=== PATIENT | male | born 1990 | race Caucasian/White ===

== ENCOUNTER 2016-08-21 10:54 | Emergency (ER) | payer OTHER ==
--- NOTE | 2016-08-21 11:29 | EDDOCDS ---
Nurse's Notes [facility] Name: Diogenes Li Age: 26 yrs Sex: Male : 1990 Arrival Date: 08/21/2016 Time: 10:54 Bed Triage 1 Private MD: INAll FISHER Diagnosis: Pain in right hand Presentation: 08/21 10:59 Presenting complaint: Patient states: hx of broken hand x 5 - re injured few month ago pml and was not taken care of - states it is broken - saw ortho was told he has nerve damage and awaiting testing. reports pain is the same or increased the entire time - no relief with tylenol and motrin. Adult Sepsis Screening: The patient does not have new or worsening altered mentation. Patient's respiratory rate is less than 22. Systolic blood pressure is greater than 100. Patient has a qSOFA score of 0- Negative Sepsis Screen. Suicide/Homicide risk assessment- the patient denies having any suicidal and/or homicidal ideations and does not present with any other emotional, behavioral or mental health complaints. Status: The patient is an active duty career services coordinator. Transition of care: patient was not received from another setting of care. 10:59 Acuity: GREG Level 4 pml 10:59 Method Of Arrival: Walkin/Carried/Asstd pml Triage Assessment: 11:01 General: Appears in no apparent distress, Behavior is appropriate for age, cooperative. pml Pain: Location: right hand Pain currently is 7 out of 10 on a pain scale. HIV screening NA for this visit Offered previously. Musculoskeletal: Circulation, motion, and sensation intact. Historical: - Allergies: no known allergies; - Home Meds: 1. none - PMHx: none; - PSHx: right hand surgery; - Social history: Smoking status: Patient uses tobacco products, light tobacco smoker. No barriers to communication noted, The patient speaks fluent Palestinian, Speaks appropriately for age. - Family history: Not pertinent. - : The pt / caregiver states he / she is not on anticoagulants. Home medication list is obtained from the patient. - Exposure Risk Screening:: None identified. Screenin:27 Screening information is obtained from the patient. Fall risk: No risks identified. js13 Assistance ADL's: requires no assistance with activities of daily living. Abuse/DV Screen: The patient / caregiver reports he/she is: not in a situation that causes fear, pain or injury. Nutritional screening: No deficits noted. Advance Directives: There is no active DNR order. home support is adequate. Assessment: 11:27 Musculoskeletal: Circulation, motion, and sensation intact Range of motion limited in js13 right hand. Vital Signs: 10:57 BP 149 / 88; Pulse 100; Resp 16; Temp 98.7; Pulse Ox 100% on R/A; Weight 70.31 kg (R); jrd Height 69 in. (175.26 cm) (R); Pain 7/10; 10:57 Body Mass Index 22.89 (70.31 kg, 175.26 cm) jrd Vitals: 10:57 Log In Time: August 21, 2016 at 10:52. [facility] ED Course: 10:56 Patient visited by Chaz Paz PCA. jrd 10:56 Patient moved to Waiting jrd 10:57 [facility] is Private Physician. jrd 10:59 Patient visited by Chaz Paz PCA. jrd 10:59 Patient moved to Pre RCE jrd 11:01 Patient visited by Mary Huff RN. pml 11:01 Triage Initiated pml 11:01 Patient moved to Triage 1 pml 11:03 [facility] Contreras F[facility] ke 11:03 Patient visited by Frederic Contreras FNP. ke 11:03 Patient visited by Frederic Contreras FNP. ke 11:17 [facility] Payment Agreement was scanned into [employer] and attached to record. mm15 11:21 [facility] is Referral Physician. ke 11:22 [facility] ke 11:27 The patient / caregiver is instructed regarding the plan of care and ED course. js13 11:27 No IV's were initiated during this patient's visit. No procedures done that require js13 assistance. Order Results: There are currently no results for this order. Outcome: 11:22 Discharge ordered by Provider. ke 11:27 Discharge Assessment: Patient awake, alert and oriented x 3. No cognitive and/or js13 functional deficits noted. Patient verbalized understanding of disposition instructions. patient administered narcotics - no. The following High Risk Discharge criteria are identified: None. Discharged to home ambulatory. Condition: stable. Discharge instructions given to patient, Instructed on discharge instructions, follow up and referral plans. medication usage, Demonstrated understanding of instructions, medications, Pt was receptive of discharge instructions/ teaching. Prescriptions given X 1. No special radiology studies were completed. Property :Personal belongings accompany Pt. 11:28 Patient left the ED. js13 Signatures: Frederic Contreras, Mary WilderRN RN Eda Henriquez RN RN js13 Zakia Boss mm15 Chaz Paz PCA QUALITATIVE FIELD PROJECT MANAGER jrhesham MTDD
--- NOTE | 2016-08-21 11:30 | EDDOCDS ---
Physician Documentation [facility] Name: Diogenes Li Age: 26 yrs Sex: Male : 1990 Arrival Date: 08/21/2016 Time: 10:54 Bed Triage 1 Private MD: [facility] [place] Disposition: 08/21/16 11:22 Discharged to Home/Self Care. Impression: Pain in right hand. - Condition is Stable. - Discharge Instructions: Pain Without a Known Cause. - Prescriptions for [place] 5- 325 mg Oral Tablet - take 1 tablet by ORAL route every 6 hours As needed MDD: 4 tabs; 20 tablet. - Medication Reconciliation, Local Pharmacy Hours form. - Follow up: [facility]; When: As soon as possible; Reason: Continuance of care. Follow up: Orthopaedics, [facility]; When: As soon as possible; Reason: Continuance of care. - Problem is an ongoing problem. - Symptoms are unchanged. Historical: - Allergies: no known allergies; - Home Meds: 1. none - PMHx: none; - PSHx: right hand surgery; - Social history: Smoking status: Patient uses tobacco products, light tobacco smoker. No barriers to communication noted, The patient speaks fluent [place], Speaks appropriately for age. - Family history: Not pertinent. - : The pt / caregiver states he / she is not on anticoagulants. Home medication list is obtained from the patient. - Exposure Risk Screening:: None identified. Vital Signs: 08/21 10:57 BP 149 / 88; Pulse 100; Resp 16; Temp 98.7; Pulse Ox 100% on R/A; Weight 70.31 kg / jrd 155.01 lbs (R); Height 69 in. (175.26 cm) (R); Pain 7/10; 10:57 Body Mass Index 22.89 (70.31 kg, 175.26 cm) jrd MDM: 11:15 Financial registration complete. mm15 11:17 [facility] Payment Agreement was scanned into [employer] and attached to record. mm15 Signatures: Frederic Contreras FNP FNP ke Quay, PaulinaRN Eda Kwan RN RN js13 Zakia Boss mm15 The chart was reviewed and I authenticate all verbal orders and agree with the evaluation and treatment provided.Attachments: 11:17 [facility] Payment Agreement mm15 MTDD
--- NOTE | 2016-08-23 12:29 | EDDOCDS ---
Nurse's Notes [facility] Name: Diogenes Li Age: 26 yrs Sex: Male : 1990 Arrival Date: 08/21/2016 Time: 10:54 Bed Triage 1 Private MD: WIAll FISHER Diagnosis: Pain in right hand Presentation: 08/21 10:59 Presenting complaint: Patient states: hx of broken hand x 5 - re injured few month ago pml and was not taken care of - states it is broken - saw ortho was told he has nerve damage and awaiting testing. reports pain is the same or increased the entire time - no relief with tylenol and motrin. Adult Sepsis Screening: The patient does not have new or worsening altered mentation. Patient's respiratory rate is less than 22. Systolic blood pressure is greater than 100. Patient has a qSOFA score of 0- Negative Sepsis Screen. Suicide/Homicide risk assessment- the patient denies having any suicidal and/or homicidal ideations and does not present with any other emotional, behavioral or mental health complaints. Status: The patient is an active duty automotive services manager. Transition of care: patient was not received from another setting of care. 10:59 Acuity: GREG Level 4 pml 10:59 Method Of Arrival: Walkin/Carried/Asstd pml Triage Assessment: 11:01 General: Appears in no apparent distress, Behavior is appropriate for age, cooperative. pml Pain: Location: right hand Pain currently is 7 out of 10 on a pain scale. HIV screening NA for this visit Offered previously. Musculoskeletal: Circulation, motion, and sensation intact. Historical: - Allergies: no known allergies; - Home Meds: 1. none - PMHx: none; - PSHx: right hand surgery; - Social history: Smoking status: Patient uses tobacco products, light tobacco smoker. No barriers to communication noted, The patient speaks fluent Sierra Leonean, Speaks appropriately for age. - Family history: Not pertinent. - : The pt / caregiver states he / she is not on anticoagulants. Home medication list is obtained from the patient. - Exposure Risk Screening:: None identified. Screenin:27 Screening information is obtained from the patient. Fall risk: No risks identified. js13 Assistance ADL's: requires no assistance with activities of daily living. Abuse/DV Screen: The patient / caregiver reports he/she is: not in a situation that causes fear, pain or injury. Nutritional screening: No deficits noted. Advance Directives: There is no active DNR order. home support is adequate. Assessment: 11:27 Musculoskeletal: Circulation, motion, and sensation intact Range of motion limited in js13 right hand. Vital Signs: 10:57 BP 149 / 88; Pulse 100; Resp 16; Temp 98.7; Pulse Ox 100% on R/A; Weight 70.31 kg (R); jrd Height 69 in. (175.26 cm) (R); Pain 7/10; 10:57 Body Mass Index 22.89 (70.31 kg, 175.26 cm) d Vitals: 10:57 Log In Time: August 21, 2016 at 10:52. [facility] ED Course: 10:56 Patient visited by Chaz Paz PCA. jrd 10:56 Patient moved to Waiting jrd 10:57 [facility] is Private Physician. jrd 10:59 Patient visited by Chaz Paz PCA. jrd 10:59 Patient moved to Pre RCE jrd 11:01 Patient visited by Mary Huff RN. pml 11:01 Triage Initiated pml 11:01 Patient moved to Triage 1 pml 11:03 [facility] ke 11:03 Patient visited by Frederic Contreras FNP. ke 11:03 Patient visited by Frederic Contreras FNP. ke 11:17 [facility] Payment Agreement was scanned into [employer] and attached to record. mm15 11:21 [facility] is Referral Physician. ke 11:22 [facility] ke 11:27 The patient / caregiver is instructed regarding the plan of care and ED course. js13 11:27 No IV's were initiated during this patient's visit. No procedures done that require js13 assistance. 14:42 T-Sheet-- Draft Copy was scanned into [employer] and attached to record. gb Order Results: There are currently no results for this order. Outcome: 11:22 Discharge ordered by Provider. ke 11:27 Discharge Assessment: Patient awake, alert and oriented x 3. No cognitive and/or js13 functional deficits noted. Patient verbalized understanding of disposition instructions. patient administered narcotics - no. The following High Risk Discharge criteria are identified: None. Discharged to home ambulatory. Condition: stable. Discharge instructions given to patient, Instructed on discharge instructions, follow up and referral plans. medication usage, Demonstrated understanding of instructions, medications, Pt was receptive of discharge instructions/ teaching. Prescriptions given X 1. No special radiology studies were completed. Property :Personal belongings accompany Pt. 11:28 Patient left the ED. js13 Signatures: Jenise Menendez, Reg Reg gb Frederic Contreras, AIX SYSTEM ADMINISTRATOR AIX SYSTEM ADMINISTRATOR Mary AlexisRN RN Eda Henriquez RN RN js13 Zakia Boss mm15 Chaz Paz, CHERRIE TOBACCO DRUMMER jrd Chart Complete MTDD
--- NOTE | 2016-08-23 12:29 | EDDOCDS ---
Physician Documentation [facility] Name: Diogenes Li Age: 26 yrs Sex: Male : 1990 Arrival Date: 08/21/2016 Time: 10:54 Bed Triage 1 Private MD: [facility] [place] Disposition: 08/21/16 11:22 Discharged to Home/Self Care. Impression: Pain in right hand. - Condition is Stable. - Discharge Instructions: Pain Without a Known Cause. - Prescriptions for [place] 5- 325 mg Oral Tablet - take 1 tablet by ORAL route every 6 hours As needed MDD: 4 tabs; 20 tablet. - Medication Reconciliation, Local Pharmacy Hours form. - Follow up: [facility]; When: As soon as possible; Reason: Continuance of care. Follow up: Orthopaedics, [facility]; When: As soon as possible; Reason: Continuance of care. - Problem is an ongoing problem. - Symptoms are unchanged. Historical: - Allergies: no known allergies; - Home Meds: 1. none - PMHx: none; - PSHx: right hand surgery; - Social history: Smoking status: Patient uses tobacco products, light tobacco smoker. No barriers to communication noted, The patient speaks fluent Namibian, Speaks appropriately for age. - Family history: Not pertinent. - : The pt / caregiver states he / she is not on anticoagulants. Home medication list is obtained from the patient. - Exposure Risk Screening:: None identified. Vital Signs: 08/21 10:57 BP 149 / 88; Pulse 100; Resp 16; Temp 98.7; Pulse Ox 100% on R/A; Weight 70.31 kg / jrd 155.01 lbs (R); Height 69 in. (175.26 cm) (R); Pain 7/10; 10:57 Body Mass Index 22.89 (70.31 kg, 175.26 cm) jrd MDM: 11:15 Financial registration complete. mm15 11:17 [facility] Payment Agreement was scanned into [employer] and attached to record. mm15 14:42 T-Sheet-- Draft Copy was scanned into [employer] and attached to record. gb Signatures: Jenise Menendez, Reg Reg Frederic Garcia, HEALTH OUTREACH WORKER Mary Ayoub RN RN pml Sullivan, Jennifer, RN RN js13 Zakia Boss mm15 The chart was reviewed and I authenticate all verbal orders and agree with the evaluation and treatment provided.Attachments: 11:17 [facility] Payment Agreement mm15 14:42 T-Sheet-- Draft Copy gb Chart Complete MTDD
--- NOTE | 2016-08-23 12:29 | EDDOCDS ---
Physician Documentation [facility] Name: Diogenes Li Age: 26 yrs Sex: Male : 1990 Arrival Date: 08/21/2016 Time: 10:54 Bed Triage 1 Private MD: [facility] [place] Disposition: 08/21/16 11:22 Discharged to Home/Self Care. Impression: Pain in right hand. - Condition is Stable. - Discharge Instructions: Pain Without a Known Cause. - Prescriptions for [place] 5- 325 mg Oral Tablet - take 1 tablet by ORAL route every 6 hours As needed MDD: 4 tabs; 20 tablet. - Medication Reconciliation, Local Pharmacy Hours form. - Follow up: [facility]; When: As soon as possible; Reason: Continuance of care. Follow up: Orthopaedics, [facility]; When: As soon as possible; Reason: Continuance of care. - Problem is an ongoing problem. - Symptoms are unchanged. Historical: - Allergies: no known allergies; - Home Meds: 1. none - PMHx: none; - PSHx: right hand surgery; - Social history: Smoking status: Patient uses tobacco products, light tobacco smoker. No barriers to communication noted, The patient speaks fluent Estonian, Speaks appropriately for age. - Family history: Not pertinent. - : The pt / caregiver states he / she is not on anticoagulants. Home medication list is obtained from the patient. - Exposure Risk Screening:: None identified. Vital Signs: 08/21 10:57 BP 149 / 88; Pulse 100; Resp 16; Temp 98.7; Pulse Ox 100% on R/A; Weight 70.31 kg / jrd 155.01 lbs (R); Height 69 in. (175.26 cm) (R); Pain 7/10; 10:57 Body Mass Index 22.89 (70.31 kg, 175.26 cm) jrd MDM: 11:15 Financial registration complete. mm15 11:17 [facility] Payment Agreement was scanned into [employer] and attached to record. mm15 14:42 T-Sheet-- Draft Copy was scanned into [employer] and attached to record. gb Signatures: Jenise Menendez, Reg Reg Frederic Garcia, PACK MULE WORKER Mary Ayoub RN RN pml Sullivan, Jennifer, RN RN js13 Zakia Boss mm15 The chart was reviewed and I authenticate all verbal orders and agree with the evaluation and treatment provided.Attachments: 11:17 [facility] Payment Agreement mm15 14:42 T-Sheet-- Draft Copy gb Chart Complete MTDD
== END 2016-08-21 11:29 | disposition home or self-care (01) ==
LOC: M ED 10:54
DX: M25.541 Pain in joints of right hand (principal); G62.9 Polyneuropathy, unspecified; Z72.0 Tobacco use

== ENCOUNTER → 2016-08-21 | Outpatient (REF) | payer OTHER ==
[2016-08-21 14:06] LABS: BASO % 0.7 % (0.0-1.0); EOS # 0.1 K/mm3 (0.0-0.50); LARGE UNSTAINED CELL % 1.1 % (0.0-4.0); MEAN CORPUSCULAR HEMOGLOBIN 24.7 pg (27.0-33.0); MEAN CORPUSCULAR HGB CONC 31.8 g/dl (32.0-36.5); MEAN CORPUSCULAR VOLUME 77.8 fl (80.0-96.0); MONO # 0.3 K/mm3 (0.0-0.8); MONO % 8.1 % (0.0-5.0); NEUTROPHILS # 1.9 K/mm3 (1.8-7.7); NEUTROPHILS % 57.1 % (36.0-66.0); PLATELET COUNT, AUTOMATED 191 k/mm3 (150-450); RED CELL DISTRIBUTION WIDTH 15.3 % (11.5-14.5); WHITE BLOOD COUNT 3.3 K/mm3 (4.0-10.0)
[2016-08-21 14:28] LABS: FOLATE 6.6 NG/ML (>5.4); VITAMIN B12 LEVEL 463 PG/ML (247-911)
[2016-08-21 14:30] LABS: ALBUMIN 3.8 GM/DL (3.2-5.2); ALBUMIN/GLOBULIN RATIO 1.15 (1.00-1.93); ALKALINE PHOSPHATASE 80 U/L (45-117); ALT/SGPT 22 U/L (12-78); ANION GAP 8 MEQ/L (8-16); AST/SGOT 15 U/L (15-37); BILIRUBIN,TOTAL 0.3 MG/DL (0.2-1.0); BLOOD UREA NITROGEN 10 MG/DL (7-18); CARBON DIOXIDE LEVEL 28 MEQ/L (21-32); CHLORIDE LEVEL 107 MEQ/L (98-107); CREATININE FOR GFR 1.04 MG/DL (0.70-1.30); GLOMERULAR FILTRATION RATE > 60.0 (>60); GLUCOSE, FASTING 91 MG/DL (70-105); POTASSIUM SERUM 4.6 MEQ/L (3.5-5.1); SODIUM LEVEL 143 MEQ/L (136-145); TOTAL PROTEIN 7.1 GM/DL (6.4-8.2)
[2016-08-21 14:44] LABS: ERYTHROCYTE SEDIMENTATION RATE 2 mm/hr (0-15)
[2016-08-24 08:06] LABS: VITAMIN E LEVEL 7.1 mg/L (5.3-17.5)
== END ==
LOC: M LABNEURO 10:28
PROVIDERS: ATTEND Psychiatry & Neurology Neurology
DX: G62.9 Polyneuropathy, unspecified (principal)